=== PATIENT | male | born 1985 | race Caucasian/White ===

== ENCOUNTER 2022-10-13 08:15 | Emergency (ER) | payer OTHER ==
[~2022-10-13] VITALS: Ht 175.3 cm; Wt 108.9 kg
== END 2022-10-13 19:06 | disposition home or self-care (01) ==
LOC: ER 08:15
DX: R10.33 Periumbilical pain (principal)

== ENCOUNTER 2024-03-29 06:37 | Day surgery (SDC) | payer OTHER ==
[2024-03-23 10:08] LABS: HEMATOCRIT 43.4 % (39.0-48.0); HEMOGLOBIN 14.9 g/dL (13-16.00); MEAN CELL VOLUME 85.2 fL (80.0-100.00); MEAN CORPUSCULAR HEMOGLOBIN 29.3 pg (27.00-32.0); MEAN CORPUSCULAR HGB CONC 34.3 g/dl (32.0-36.0); PLATELET COUNT 244 K/uL (150-450); RED CELL DISTRIBUTION WIDTH 14.3 % (11.5-14.5)
[2024-03-23 10:54] LABS: PARTIAL THROMBOPLASTIN TIME 29.1 SECONDS (22.0-34.0); PROTHROMBIN TIME 10.9 SECONDS (9.0-11.5)
[2024-03-23 10:55] LABS: CALCIUM 9.4 mg/dL (8.5-10.1); CREATININE SERUM 0.87 mg/dL (0.70-1.30); GFR 97.69; POTASSIUM 4.17 mEq/L (3.5-5.1)
[2024-03-23 12:40] LABS: PH,URINE 5.5 (5.0-8.0); URINE APPEARANCE Clear; URINE BILIRRUBIN Negative (NEGATIVE); URINE BLOOD Negative; URINE COLOR Yellow; URINE GLUCOSE Negative (NEGATIVE); URINE KETONE Trace (NEGATIVE); URINE LEUKOCYTE Negative; URINE NITRATE Negative; URINE PROTEIN Negative (NEGATIVE)
[2024-03-23 12:46] LABS: URINE BACTERIA 8.8 uL (0.0-1933); URINE EPITHELIAL CELLS 5.5 uL (0.0-38.8); URINE WBC 7.7 uL (0.0-23.2)
[2024-03-23 13:28] LABS: URINE CAST 0.15 uL (0.0-1.40)
[2024-03-29] MEDS ORDERED: CEFTRIAXONE SODIUM 2,000 MG VIAL IV ONE (12:15)
[2024-03-29] MEDS ORDERED: ENOXAPARIN SODIUM 40 MG/0.4 ML SYRINGE SUBCUTANEO ONE (12:15)
[2024-03-29] MEDS ORDERED: METRONIDAZOLE/SODIUM CHLORIDE 500 MG/100 ML PIGGYBACK IV ONE (12:15)
[2024-03-29] MEDS ORDERED: NEURONTIN300 MG PO (13:51)
[2024-03-29] MEDS ORDERED: CELEBREX200MG PO (13:51)
[2024-03-29] MEDS ORDERED: PERCOCET 5-3251 EACH PO (13:51)
[2024-03-29] MEDS ORDERED: POLY119PG PO (13:52)
[2024-03-29] MEDS ORDERED: MORPHINE SULFATE 4 MG/ML VIAL IV ONE ×2 (14:10→14:55)
== END 2024-03-29 16:10 | disposition home or self-care (01) ==
LOC: CIR.AMB 06:37
PROVIDERS: ATTEND Surgery
DX: K42.0 Umbilical hernia with obstruction, without gangrene (principal)
CPT/HCPCS: 49594; C1781